=== PATIENT | male | born 2000 | race Caucasian/White ===

== ENCOUNTER 2021-02-18 17:55 | Emergency (ER) | payer OTHER ==
[~2021-02-18] VITALS: Ht 170.2 cm; Wt 59.0 kg
[2021-02-18] MEDS ORDERED: IBUPROFEN 600 MG TABLET PO ONE (19:45)
[2021-02-18 19:55] VITALS: BP 144/78
[2021-02-18] MEDS ORDERED: ACETAMINOPHEN 500 MG TABLET PO ONE (20:00)
[2021-02-18] MEDS ORDERED: ACET-2247 PO (20:22)
[2021-02-18] MEDS ORDERED: IBUP-1552 PO (20:22)
[2021-02-18] MEDS ORDERED: CEPH500B PO (20:22)
== END 2021-02-18 20:39 | disposition home or self-care (01) ==
LOC: EDH 17:55
DX: L03.115 Cellulitis of right lower limb (principal); Z88.0 Allergy status to penicillin; Z88.1 Allergy status to other antibiotic agents; Z88.5 Allergy status to narcotic agent; Z79.899 Other long term (current) drug therapy